=== PATIENT | male | born 1980 | race Two or more races ===

== ENCOUNTER 2022-03-04 14:27 | Emergency (ER) | payer BC, OTHER ==
[~2022-03-04] VITALS: Ht 180.3 cm; Wt 83.9 kg
--- OUTSIDE RECORDS SUMMARY | 2022-03-04 14:30 | XMS ---
PreManage Notification: [facility] [employer] Community Outreach Worker Events No recent Security Events currently on file CRITERIA MET - [facility] CARE PROVIDERS There are no care providers on record at this time. Jose has no Care Guidelines for this patient. Timbo VISIT COUNT (12 MO.) 1 ANAMIKA Joseph TOTAL 1 NOTE: Visits indicate total known visits. ED/C VISIT TRACKING (12 MO.) 03/04/2022 14:28 ANAMIKA Bello OR TYPE: Emergency COMPLAINT: - L THUMB INJURY INPATIENT VISIT TRACKING (12 MO.) No inpatient visits to display in this time frame [id number]
[2022-03-04] MEDS ORDERED: HYDROCODON-ACE1 EA10 PO (16:35)
[2022-03-04] MEDS ORDERED: CEPHALEXIN500 M1 PO (16:35)
== END 2022-03-04 16:58 | disposition home or self-care (01) ==
LOC: ED 14:27
DX: S62.522A Displaced fracture of distal phalanx of left thumb, initial encounter for closed fracture (principal); Z23 Encounter for immunization; W23.0XXA Caught, crushed, jammed, or pinched between moving objects, initial encounter; Y99.0 Civilian activity done for income or pay; Y92.512 Supermarket, store or market as the place of occurrence of the external cause
CPT/HCPCS: 12002; 73140; 90471; 90715; 99283-25; A9270